=== PATIENT | male | born 1955 | race Caucasian/White ===

== ENCOUNTER 2020-01-30 05:59 | Day surgery (SDC) | payer MEDICARE, OTHER ==
--- NOTE | 2020-01-29 11:09 | PCM.SN.2 ---
- Free Text/Narrative Note: Date: 01/30/2020 Time Out: 631 Start: 631 Stop: 631 Surgical Procedure: Right Reverse Total Shoulder Replacement Diagnosis Right Shoulder Osteoarthritis Current Procedure: Right interscalene block under US guidance for postoperative pain control requested by Dr. La. Patient chart reviewed, risk/benefits discussed with patient, consent obtained. Patient positioned supine, monitors/alarms on, oxygen placed via nasal cannula at 2 LPM. IV sedation administered: Versed 2mg IV, Fentanyl 100 mcg IV given in preop prior to block placement. Right shoulder prepped with two chloropreps. Sterile drapes placed with aseptic technique noted. Under US guidance, right subclavian artery visualized along with the right brachial plexus. Plexus followed up to C6 cricoid level, and area localized with 2mls of 1% lidocaine. 22gauge 2 inch stimiplex needle advanced under US with 0.6mV with stimulation of biceps noted. Good stimulation noted with decreased voltage and absent at 0.3mVs. 1ml of Normal Saline injected with loss of stimulation noted to confirm needle not placed intraneurally. Incremental dosing of 5mls with negative aspiration noted prior to each injection of 0.5% ropivacaine with 1:200,000 epinephrine. Total volume=30mls. Please refer to nurses noted for vital signs. Little Yoo CRNA
--- NOTE | 2020-01-29 13:13 | PCM.PREANE ---
Preanesthetic Assessment - Procedure Proposed Procedure: Reverse Right Total Shoulder Arthroplasty - Anesthesia/Transfusion/Family Hx Anesthesia History: Prior Anesthesia Without Reaction Family History of Anesthesia Reaction: No Transfusion History: No Prior Transfusion(s) Intubation History: Unknown - Review of Systems General: No Symptoms Pulmonary: No Symptoms (Former smoker: 2009 ETOH: couple times/month) Cardiovascular: No Symptoms (History of previous ablation: about 9 years ago) Gastrointestinal: No Symptoms Neurological: No Symptoms (Osteoarthritis) Other: Reports: Sinus Problem (sinusitis/pharyngitis) - Physical Assessment NPO Status Date: 01/29/20 NPO Status Time: 23:00 Vital Signs: HR:88 Sat:96% Temp:97.2 Resp:16 B/P:148/96 Height: 1.85 m Weight: 84 kg ASA Class: 2 Mental Status: Alert & Oriented x3 Airway Class: Mallampati = 2 Dentition: Reports: Normal Dentition, Caries Thyro-Mental Finger Breadths: 3 Mouth Opening Finger Breadths: 3 Lungs: Clear to Auscultation, Normal Respiratory Effort Cardiovascular: Regular Rate, Regular Rhythm, No Murmurs - Lab Values: Laboratory Last Values SARS-CoV-2 (PCR) Not detected (NOT DETECT) 01/27/20 09:00 MRSA (PCR) Negative 01/17/20 10:07 All labs reviewed and noted and within acceptable ranges to proceed with scheduled procedure. - Imaging/EKG Impressions: EKG: SR rate 69 Echocardiogram: EF: 58-63% - Allergies Allergies/Adverse Reactions: Allergies Allergy/AdvReac Type Severity Reaction Status Date / Time amoxicillin [From Augmentin] Allergy kidney Verified 01/29/20 15:29 failure clavulanic acid Allergy kidney Verified 01/29/20 15:29 [From Augmentin] failure - Anesthesia Plan Pre-Op Medication Ordered: None, Other (Oral preoperative meds: lyrica, tylenol, oxycodone all @0619) - Acknowledgements Anesthesia Type Planned: General Anesthesia (Right ISB under US guidance for post operative pain control requested by Dr. La.) Pt an Appropriate Candidate for the Planned Anesthesia: Yes Alternatives and Risks of Anesthesia Discussed w Pt/Guardian: Yes Pt/Guardian Understands and Agrees with Anesthesia Plan: Yes PreAnesthesia Questionnaire - HOME MEDS Home Medications: Home Meds Aspirin [Aspirin EC] 325 mg PO DAILY #40 tablet. 01/29/20 [Rx] Cholecalciferol (Vitamin D3) [Vitamin D3] 5,000 unit PO DAILY 01/29/20 [History] Cyclobenzaprine [Flexeril] 10 mg PO BID PRN #20 tab 01/29/20 [Rx] Fish Oil/[place]-3 Fatty Acids [Fish Oil 1,000 MG] 1 gm PO DAILY 01/29/20 [History] Multivitamin [Daily Lon] 1 tab PO DAILY 01/29/20 [History] oxyCODONE 5 - 10 mg PO Q4H PRN #40 tab 01/29/20 [Rx] - CURRENT (IN HOUSE) MEDS Current Meds: Current Medications Lactated Ringer's (Ringers, Lactated) 1,000 mls @ 125 mls/hr IV ASDIRECTED CLAUDIA Stop: 01/30/20 23:00 Lidocaine/Sodium Bicarbonate (Buffered Lidocaine 1% In Ns 8.4%) 0.25 ml IDERM O NETIME PRN PRN Reason: Prior to IV Start Stop: 01/30/20 18:00 Sodium Chloride (Saline Flush) 10 ml FLUSH ASDIRECTED PRN PRN Reason: Keep Vein Open Stop: 01/30/20 18:00
[~2020-01-30 05:59] MED LIST: Acetaminophen 325 MG Tab PO SCH; Dexamethasone 4 MG/ML 5 ML MDV ONE; EPINEPHrine 1 MG/ML SDV ONE; Ketorolac 30 MG/ML SDV ONE; Lactated Ringers 1,000 ML IV SCH; Lactated Ringers 2,000 ML ONE; Lidocaine 1% 2 ML ONE; Lidocaine 1% 4 ML ONE; Lidocaine 1%/Sod Bicarbonate in NS 8.4% 1 ML Syringe IDERM PRN; Midazolam 1 MG/ML 2 ML SDV ONE; Ondansetron 4 MG/2 ML SDV ONE; Pregabalin 25 MG Cap PO SCH; Propofol 200 MG/20 ML SDV ONE; Rocuronium 50 MG/5 ML Vial ONE; Ropivacaine 0.5% 5 MG/ML 30 ML SDV ONE; Sodium Chloride 0.9% 10 ML Syringe FLUSH PRN; fentaNYL 250 MCG/5 ML SDV ONE; oxyCODONE ER 10 MG TAB.ER PO SCH
[2020-01-30] MEDS ORDERED: diphenhydrAMINE 50 MG/ML SDV IVPUSH PRN (07:41)
[2020-01-30] MEDS ORDERED: Ondansetron 4 MG/2 ML SDV IVPUSH PRN (07:41)
[2020-01-30] MEDS ORDERED: ePHEDrine 50 MG/ML SDV IVPUSH PRN (07:41)
[2020-01-30] MEDS ORDERED: fentaNYL 100 MCG/2 ML SDV IVPUSH PRN (07:41)
[2020-01-30] MEDS ORDERED: HYDROmorphone 0.5 MG/0.5 ML Syringe IVPUSH PRN (07:43)
[2020-01-30] MEDS ORDERED: Albuterol 0.083% 2.5 MG/3 ML Neb Soln NEB PRN (07:43)
[2020-01-30] MEDS: Vancomycin 1 GM SDV ONE ×2 (08:15→08:56)
--- NOTE | 2020-01-30 09:33 | PCM.POSTAN ---
POST ANESTHESIA ASSESSMENT - MENTAL STATUS Mental Status: Alert - VITAL SIGNS Vital Signs: Last Vital Signs Temp 97 01/30/20927 Pulse 82 01/30/20927 Resp 10 01/30/20927 BP 139/90 927 Pulse Ox 95% 01/30/20927 - RESPIRATORY Respiratory Status: Respiratory Rate WNL, Airway Patent, O2 Saturation Stable, Supplemental Oxygen - CARDIOVASCULAR CV Status: Pulse Rate WNL, Blood Pressure Stable - GASTROINTESTINAL GI Status: No Symptoms - POST OP HYDRATION Hydration Status: Adequate & Stable
[2020-01-30] MEDS ORDERED: oxyCODONE 5 MG Tab PO PRN (09:49)
--- NOTE | 2020-01-30 10:46 | PCM48HPAN ---
Post Anesthesia Note - EVALUATION WITHIN 48HRS OF ANESTHETIC Vital Signs in Normal Range: Yes Patient Participated in Evaluation: Yes Respiratory Function Stable: Yes Airway Patent: Yes Cardiovascular Function Stable: Yes Hydration Status Stable: Yes Pain Control Satisfactory: Yes Nausea and Vomiting Control Satisfactory: Yes Mental Status Recovered: Yes Vital Signs: Last Vital Signs Temp 36.4 C 01/30/20 10:30 Pulse 70 01/30/20 10:30 Resp 13 01/30/20 10:30 BP 130/82 01/30/20 10:30 Pulse Ox 95 01/30/20 10:30
--- NOTE | 2020-01-30 14:37 | CR ---
PROCEDURE INFORMATION: Exam: XR Right Shoulder Exam date and time: 01/30/2020 9:28 AM Age: 64 years old Clinical indication: Device placement; Joint replacement hardware; Additional info: Total right shoulder replacement; Post-op films TECHNIQUE: Imaging protocol: XR Right shoulder. Views: 1 view. COMPARISON: CR Shoulder Comp Rt 11/20/2019 4:10 PM FINDINGS: Bones/joints: There is a new shoulder replacement. There is good alignment. Soft tissues: There is soft tissue and joint air. IMPRESSION: Shoulder replacement. Thank you for allowing us to participate in the care of your patient. Dictated and Authenticated by: Gennaro Sánchez MD 01/30/2020 11:03 AM Central Time ([place] & [place]) DARRYL
--- NOTE | 2020-01-30 15:06 | CR ---
PROCEDURE INFORMATION: Exam: FL Fluoroscopy, Up to 1 Hour Physician Time; Radiologist Not Present For Fluoroscopy Exam date and time: 01/30/2020 8:52 AM Age: 64 years old Clinical indication: Device placement; Additional info: Total right shoulder replacement; In-operative films TECHNIQUE: Imaging protocol: Fluoroscopy , up to 1 hour physician or other qualified health customer care representative time. This radiologist did not supervise this procedure. Exam supervised by facility personnel. Report for radiation dosage reporting and documentation only. COMPARISON: No relevant prior studies available. RADIATION DOSE METRICS: Fluoroscopy time (seconds): 1.9 seconds Number of fluoro spot images: 2 FINDINGS: Procedural imaging: Shoulder replacement. Notes: Fluoroscopy supervised by facility personnel. See also separate procedure report. IMPRESSION: Fluoroscopy dosage documentation. See also separate procedure notes. Thank you for allowing us to participate in the care of your patient. Dictated and Authenticated by: Gennaro Sánchez MD 01/30/2020 10:35 AM Central Time ([place] & [place]) DARRYL
--- NOTE | 2020-02-13 12:01 | PCM.OPNOTE ---
- General Post-Op/Procedure Note Date of Surgery/Procedure: 01/30/20 Operative Procedure(s): right reverse total shoulder arthroplasty Pre Op Diagnosis: right shoulder rotator cuff tear arthropathy Post-Op Diagnosis: Same Anesthesia Technique: General ET Tube, Regional Block Primary Surgeon: Akhil La Anesthesia Provider: Little Yoo Assistant Clinical Director: Brit Michelle Assistant Clinical Director: Kenyetta Gorman EBL in mLs: 350 Complications: None Condition: Good Free Text/Narrative:: 16 stem 36+6 4mm poly
--- NOTE | 2020-02-13 12:29 | OR ---
DATE OF OPERATION: 01/30/2020 SURGEON: Akhil La MD OPERATION PERFORMED: Right reverse total shoulder arthroplasty. PREOPERATIVE DIAGNOSIS: Right shoulder rotator cuff tear arthropathy with severe osteoarthrosis. POSTOPERATIVE DIAGNOSIS: Right shoulder rotator cuff tear arthropathy with severe osteoarthrosis. ANESTHESIA: General endotracheal intubation with regional interscalene block. ANESTHESIA PROVIDER: Little Yoo CRNA. ORDER EXPEDITER: Brit Michelle PA-C; and Kenyetta Gorman LPN. ESTIMATED BLOOD LOSS: 350 mL. COMPLICATIONS: None. CONDITION: Stable. IMPLANTS: 1. Kiera size 16 135-degree humeral stem. 2. Kiera size 36 +6 glenosphere. 3. Kiera size 28 mm concentric base plate. 4. Kiera size 4 mm polyethylene insert. DESCRIPTION OF PROCEDURE: The patient was identified in the preoperative holding area, where proper site was marked and identified by surgeon. The patient was taken back to the operative theater, where after adequate anesthesia, the patient's right upper extremity was sterilely prepped and draped in the usual sterile fashion. OR time-out was performed. The patient received 2 g of IV Ancef. At this time, a standard deltopectoral incision was made. Cephalic vein was identified. Deltoid was retracted laterally. Clavipectoral fascia was incised and the conjoined tendon was retracted medially. The anterior humeral circumflex vessels were then ligated. Biceps tendon was identified and a tenodesis of the biceps tendon was done near the pectoralis major tendon. Biceps tendon was then resected and was brought back to the level of the glenoid, where it was resected. The patient then had the subscapularis peeled down. He had severe limitation of motion and with large bony spurs, it did take significant effort to remove all the bony spurs off the humerus to allow it to dislocate. Once it was dislocated, neck cut was completed and found to be adequate. Attention was turned to the glenoid, and again at this point, the patient had a large amount of spurs posteriorly as well as inferiorly to the glenoid as well as behind the humerus that had to be resected out making it significantly more difficult than usual. Once the bony spurs were removed, anterior and posterior retractors of the glenoid were placed. Guide pin was placed in a center-center position with 10 degrees inferior tilt and a 28 mm reamer was then utilized to get good bleeding cancellous bone. The glenoid base plate was then placed, a central compression screw was then placed and found to have adequate compression onto the glenoid. An inferior and superior locking screw were then placed and the 36 +6 glenosphere was impacted into place. Attention was turned to the humerus. Starting with a 12 broach, I was able to broach up to a 16, which was found to be rotationally and vertically stable. Calcar planer was then utilized. Trial +4 insert was placed and the patient's shoulder was relocated and brought through range of motion, and was found to be stable throughout. No signs of impingement. C-arm fluoroscopy was utilized showing all the parts to be in anatomic position. The trial implants were then removed. The size 16 stem was constructed on the back table with 135 degrees +4 poly. This was then impacted en bloc into the humerus, was reduced and C-arm fluoroscopy again showed all parts in good position and sized. 1 L of pulse lavage irrigation with Ancef was irrigated through the shoulder along with IrriSept irrigation. 2-0 Vicryl was used subcutaneously, Prineo was used for closure of the skin. The patient tolerated the procedure well and was sent to PACU in stable condition. JENNY /[id number]
== END 2020-01-30 14:03 | disposition home or self-care (01) ==
LOC: JD.SDS 05:59 → EDSTATUS 07:30 → JD.SDS 14:03
PROVIDERS: ATTEND Orthopaedic Surgery
DX: M19.011 Primary osteoarthritis, right shoulder (principal); M75.101 Unspecified rotator cuff tear or rupture of right shoulder, not specified as traumatic; Z88.8 Allergy status to other drugs, medicaments and biological substances; Z79.899 Other long term (current) drug therapy; Z87.891 Personal history of nicotine dependence; Z88.0 Allergy status to penicillin; Z01.812 Encounter for preprocedural laboratory examination; Z20.828 Contact with and (suspected) exposure to other viral communicable diseases; G89.18 Other acute postprocedural pain
CPT/HCPCS: 23474; 73020; 76000; 87641; 97110; 97161; A9270; C1713; C1769; C1776; J0171; J1100; J1885; J2001; J2250; J2370; J2405; J2704; J2710; J2795; J3010; J3370; J7120; 01638; 64415; U0002

== ENCOUNTER → 2021-03-10 | Day surgery (SDC) | payer MEDICARE, OTHER ==
[~2021-03-10] MED LIST changes: +Bupivacaine 0.5% 30 ML SDV ONE; +Dexmedetomidine 200 MCG/2 ML SDV ONE; -EPINEPHrine 1 MG/ML SDV ONE; -Ketorolac 30 MG/ML SDV ONE; +Lactated Ringers 1,000 ML ONE; -Lactated Ringers 2,000 ML ONE; -Lidocaine 1% 2 ML ONE; -Lidocaine 1% 4 ML ONE; -Ondansetron 4 MG/2 ML SDV ONE; -Rocuronium 50 MG/5 ML Vial ONE; +ceFAZolin 1 GM Vial ONE; +fentaNYL 100 MCG/2 ML SDV ONE; -fentaNYL 250 MCG/5 ML SDV ONE
--- NOTE | 2021-03-10 10:57 | PCM.PREANE ---
Preanesthetic Assessment - Procedure Proposed Procedure: Right Total Knee Arthroplasty - Anesthesia/Transfusion/Family Hx Anesthesia History: Prior Anesthesia Without Reaction Family History of Anesthesia Reaction: No Transfusion History: No Prior Transfusion(s) Intubation History: Unknown - Review of Systems General: No Symptoms Pulmonary: No Symptoms (ETOH: occasional/ Former smoker: less than 1ppd for 20 years.) Cardiovascular: No Symptoms (history of SVT with ablation 8-10 yrs ago.) Gastrointestinal: No Symptoms Neurological: No Symptoms Other: Reports: Liver Problems (history of hepatitis reaction noted with augmentin therapy) - Physical Assessment NPO Status Date: 03/09/21 NPO Status Time: 23:00 Vital Signs: HR: 76 B/P: 127/67 Resp: 16 Sat: 96% Temp: 98.1 Height: 1.85 m Weight: 86 kg ASA Class: 2 Mental Status: Alert & Oriented x3 Airway Class: Mallampati = 2 Dentition: Reports: Normal Dentition, [place](s), Caries Thyro-Mental Finger Breadths: 3 Mouth Opening Finger Breadths: 3 ROM/Head Extension: Full Lungs: Clear to Auscultation, Normal Respiratory Effort Cardiovascular: Regular Rate, Regular Rhythm, No Murmurs - Imaging/EKG Impressions: CXR: nodule in left lung base. EKG: SR rate=77, borderline inferior Q waves, LAD. - Allergies Allergies/Adverse Reactions: Allergies Allergy/AdvReac Type Severity Reaction Status Date / Time amoxicillin [From Augmentin] Allergy kidney Verified 01/29/20 15:29 failure clavulanic acid Allergy kidney Verified 01/29/20 15:29 [From Augmentin] failure - Anesthesia Plan Pre-Op Medication Ordered: Other (Preopertive oral pain meds given @ 0916 (lyrica, tylenol, oxycontin)) - Acknowledgements Anesthesia Type Planned: Spinal (Right Adductor Canal Block under US guidance for post operative pain control requested by Dr. La.) Pt an Appropriate Candidate for the Planned Anesthesia: Yes Alternatives and Risks of Anesthesia Discussed w Pt/Guardian: Yes Pt/Guardian Understands and Agrees with Anesthesia Plan: Yes PreAnesthesia Questionnaire HEENT History: Reports: Sinusitis, Other (See Below) Other HEENT History: pharyngitis, wears glasses Cardiovascular History: Reports: Other (See Below) Other Cardiovascular History: SVT with ablation Respiratory History: Reports: None Gastrointestinal History: Reports: Colon Polyp Genitourinary History: Reports: None DIRECTOR OF CATERING History: Reports: None Musculoskeletal History: Reports: Osteoarthritis, Other (See Below) Other Musculoskeletal History: right shoulder pain, right knee degnerative joint disease Neurological History: Reports: None Psychiatric History: Reports: None Endocrine/Metabolic History: Reports: None Hematologic History: Reports: None Immunologic History: Reports: None Oncologic (Cancer) History: Reports: None Dermatologic History: Reports: None - Infectious Disease History Infectious Disease History: Reports: None - Past Surgical History Head Surgeries/Procedures: Reports: None HEENT Surgical History: Reports: Tonsillectomy Cardiovascular Surgical History: Reports: Cardiac Ablation Respiratory Surgical History: Reports: None GI Surgical History: Reports: Colonoscopy Female Surgical History: Reports: None Male Surgical History: Reports: None Endocrine Surgical History: Reports: None Neurological Surgical History: Reports: None Musculoskeletal Surgical History: Reports: Arthroscopic Knee Oncologic Surgical History: Reports: None Dermatological Surgical History: Reports: None - SUBSTANCE USE Tobacco Use Status *Q: Former Tobacco User Recreational Drug Use History: No - HOME MEDS Home Medications: Home Meds Cholecalciferol (Vitamin D3) [Vitamin D3] 5,000 unit PO DAILY 01/29/20 [History] Fish Oil/[place]-3 Fatty Acids [Fish Oil 1,000 MG] 1 gm PO DAILY 01/29/20 [History] Multivitamin [Daily Lon] 1 tab PO DAILY 01/29/20 [History] Aspirin [Aspirin EC] 325 mg PO BID #84 tab 03/09/21 [Rx] Cyclobenzaprine [Flexeril] 10 mg PO BID PRN #20 tab 03/09/21 [Rx] oxyCODONE 5 - 10 mg PO Q4H PRN #40 tab 03/09/21 [Rx] - CURRENT (IN HOUSE) MEDS Current Meds: Current Medications Acetaminophen (Acetaminophen 325 Mg Tab) 975 mg PO ONETIME CLAUDIA Stop: 03/10/21 14:00 Last Admin: 03/10/21 09:16 Dose: 975 mg Documented by: Morphine Sulfate 8 mg/Epinephrine HCl 0.3 mg/Cefuroxime Sodium 750 mg/Ketorolac Tromethamine 30 mg/Sodium Chloride 7.9 ml 0 mg .XX ASDIRECTED PRN PRN Reason: Pain Lactated Ringer's (Ringers, Lactated) 1,000 mls @ 125 mls/hr IV ASDIRECTED CLAUDIA Stop: 03/10/21 23:00 Lidocaine/Sodium Bicarbonate (Lidocaine 1%/Sod Bicarbonate In Ns 8.4% 1 Ml Syringe) 0.25 ml IDERM ONETIME PRN PRN Reason: Prior to IV Start Stop: 03/10/21 23:00 Oxycodone HCl (Oxycodone Er 10 Mg Tab.Er) 10 mg PO ONETIME CLAUDIA Stop: 03/10/21 14:00 Last Admin: 03/10/21 09:16 Dose: 10 mg Documented by: Pregabalin (Pregabalin 25 Mg Cap) 50 mg PO ONETIME CLAUDIA Stop: 03/10/21 14:00 Last Admin: 03/10/21 09:16 Dose: 50 mg Documented by: Sodium Chloride (Sodium Chloride 0.9% 10 Ml Syringe) 10 ml FLUSH ASDIRECTED PRN PRN Reason: Keep Vein Open Stop: 03/10/21 23:00 Discontinued Medications Bupivacaine HCl (Bupivacaine 0.5% 30 Ml Sdv) Confirm Administered Dose 30 ml .ROUTE .STK-MED ONE Stop: 03/10/21 09:50 Dexamethasone (Dexamethasone 4 Mg/Ml 5 Ml Mdv) Confirm Administered Dose 20 mg .ROUTE .STK-MED ONE Stop: 03/10/21 09:14 Dexmedetomidine HCl (Dexmedetomidine 200 Mcg/2 Ml Sdv) Confirm Administered Dose 200 mcg .ROUTE .STK-MED ONE Stop: 03/10/21 09:14 Ropivacaine (Ropivacaine 0.5% 5 Mg/Ml 30 Ml Sdv) Confirm Administered Dose 30 ml .ROUTE .STK-MED ONE Stop: 03/10/21 09:52 Tranexamic Acid (Tranexamic Acid 1,000 Mg/10 Ml Amp) Confirm Administered Dose 1,000 mg .ROUTE .STK-MED ONE Stop: 03/10/21 09:41 Vancomycin HCl (Vancomycin 1 Gm Sdv) Confirm Administered Dose 1 gm .ROUTE .STK- MED ONE Stop: 03/10/21 09:41
[2021-03-10] MEDS: Vancomycin 1 GM SDV ONE ×3 (12:39→13:05)
[2021-03-10] MEDS: Morphine 8 MG, EPINEPHrine 0.3 MG, Cefuroxime 750 MG, Ketorolac 30 MG, Sodium Chloride ... PRN ×10 (12:40→12:58)
--- NOTE | 2021-03-10 13:57 | PCM.POSTAN ---
POST ANESTHESIA ASSESSMENT - MENTAL STATUS Mental Status: Alert, Oriented - VITAL SIGNS Vital Signs: Last Vital Signs Temp 98.7 F 03/10/21 13:45 Pulse 72 03/10/21 13:45 Resp 73 H 03/10/21 13:54 BP 133/77 03/10/21 13:45 Pulse Ox 94 L 03/10/21 13:54 - RESPIRATORY Respiratory Status: Respiratory Rate WNL, Airway Patent, O2 Saturation Stable - CARDIOVASCULAR CV Status: Pulse Rate WNL, Blood Pressure Stable - GASTROINTESTINAL GI Status: No Symptoms - PAIN Pain Score: 0 (post-SAB) - POST OP HYDRATION Hydration Status: Adequate & Stable
--- NOTE | 2021-03-10 14:01 | PCM.PRNOTE ---
- Free Text/Narrative Note: Postoperative regional pain control requested by surgeon. Pre-op Dx: Rt knee osteoarthritis Post-op Rx: Rt total knee arthroplasty. Procedure: Rt Adductor canal block with U/S guidance Requesting physician: Dr. Akhil Raines Risks and benefits discussed with the patient preoperatively including infection, bleeding, incomplete or failed block, possible nerve damage, local anesthetic toxicity. Chart reviewed, VS stable. Permit signed. Patient in PACU , stable , alert and awake after SAB. Time out performed at 13:42. Right mid-thigh was prepped with Chloraprep x 1 and allowed to dry. Under aseptic technique, the Right femoral artery and sartorius muscle were identified under ultrasound prior to needle insertion . 4" Stimuplex needle #22 G was inserted under US guidance. Under direct visualization of needle tip the injection of 0.5% Ropivacaine with 1:200k epinephrine,(mixed with 40 mcg Dexmedetomidine and 6 mg of Dexamethasone), total of 30 mls in divided doses, maintaining negative aspiration was completed around the femoral artery under the sartorius muscle without problems. No local anesthetic toxicity was noted. Patient is awake, stable and tolerated the procedure well. Times: 13:42 - 13:46
--- NOTE | 2021-03-10 14:29 | CR ---
Right knee: AP and crosstable lateral views of the right knee were obtained. Comparison: Prior CT right knee study of 02/16/21. Knee prosthesis and patellar prosthesis are noted. Components are aligned. Soft tissue air is noted. Underlying bony structures are intact. Impression: 1. Satisfactory postoperative radiographic appearance of recently placed right knee prostheses. Diagnostic code #2
--- NOTE | 2021-03-10 14:31 | PCM48HPAN ---
Post Anesthesia Note - EVALUATION WITHIN 48HRS OF ANESTHETIC Vital Signs in Normal Range: Yes Patient Participated in Evaluation: Yes Respiratory Function Stable: Yes Airway Patent: Yes Cardiovascular Function Stable: Yes Hydration Status Stable: Yes Pain Control Satisfactory: Yes Nausea and Vomiting Control Satisfactory: Yes Mental Status Recovered: Yes Vital Signs: Last Vital Signs Temp 98.2 F 03/10/21 14:15 Pulse 71 03/10/21 14:15 Resp 18 03/10/21 14:15 BP 135/80 03/10/21 14:15 Pulse Ox 97 03/10/21 14:15
--- NOTE | 2021-03-17 17:05 | PCM.OPNOTE ---
- General Post-Op/Procedure Note Date of Surgery/Procedure: 03/10/21 Operative Procedure(s): right total knee arthroplasty with [employer] Pre Op Diagnosis: right knee osteoarthrosis Post-Op Diagnosis: Same Anesthesia Technique: Local, MAC, Spinal Primary Surgeon: Akhil La Anesthesia Provider: Donny Mccoy Underground Drill Operator: Brit Michelle Underground Drill Operator: Kenyetta Gorman EBL in mLs: 150 Complications: None Condition: Good Free Text/Narrative:: 09/06 9mm 35x10
--- NOTE | 2021-03-18 13:20 | OR ---
DATE OF OPERATION: 03/10/2021 SURGEON: Akhil La MD OPERATION PERFORMED: Right total knee arthroplasty with [employer] robot[employer]. PREOPERATIVE DIAGNOSIS: Right knee osteoarthrosis. POSTOPERATIVE DIAGNOSIS: Right knee osteoarthrosis. ANESTHESIA: Local MAC with spinal. ANESTHESIA PROVIDER: Rosa Isela Vidal. ASSISTANTS: Brit Michelle PA-C and Kenyetta Gorman LPN. ESTIMATED BLOOD LOSS: 150 mL. COMPLICATIONS: None. CONDITION: Stable. IMPLANTS: 1. [employer] size 6 press-fit CR femur. 2. [employer] size 6 press-fit tibial baseplate. 3. Kiera size 6, 9 mm CS polyethylene insert. 4. Kiera size 35 x 10 mm press-fit patella. DESCRIPTION OF PROCEDURE: The patient was identified in the preop holding area. Proper site was marked and identified by the surgeon. The patient was taken back to the operating theater, where after adequate anesthesia, the patient's right lower extremity had a nonsterile tourniquet applied and then it was sterilely prepped and draped in the usual sterile fashion. OR time-out was performed. The patient received 2 g IV Ancef. Leg ulrich was then applied to the right lower extremity. At this time, the right lower extremity was exsanguinated. Tourniquet was insufflated to 250 mmHg. Standard anterior incision was made. Medial parapatellar arthrotomy was created. Deep fibers of the MCL were raised and anterior fat pad was resected. Attention was turned to the patella. Patella measured 26, it was resected to a 15 for a 35 x 10 mm patella. Drill holes were then drilled. Attention was then turned to the femur. Two 4.0 Schanz pins were placed intra-incisionally on the femur for the [employer] robotic array and then 2 more were placed on the tibia 3 fingerbreadths below the tibial tubercle. The [employer] robotic arrays were placed on both the femur and the tibia at this time as well as checkpoints on the femur and tibia. Hip center rotation was then obtained. The medial and lateral malleoli were marked as well as the checkpoints were marked for the [employer] robotic plan. The patient's knee was brought to full extension, varus and valgus stresses were applied, and then into 90 degrees of flexion. [employer] robotic plan for this patient was then undertaken to match the flexion and extension gaps. A straight saw blade was then brought in. Tibial cut was completed as well as an anterior femoral cut, anterior chamfer cut, and posterior femoral cut. Saw blade was then switched out and the distal femoral cut as well as the posterior chamfer cut was completed. All bony fragments were removed. At this time, medial and lateral menisci were resected as well as any posterior osteophytes. Attention was turned to the tibia. The size 6 trial baseplate was placed on the tibia and a size 6 trial femur was placed on the femur. A size 6, 9 mm trial poly was placed. The patient's knee was brought to full extension and flexion. Varus and valgus stresses were applied, was found to be stable with no instability. No signs of liftoff or loosening on the tibial baseplate. At this time, femoral drill holes were drilled, and the tibia was stamped and drilled in proper rotation. All trial implants were then removed. The size 6 tibial baseplate was impacted into place, size 6 femoral component was impacted into place, and then a size 6, 9 mm CS polyethylene insert was impacted into place. A 35 x 10 mm press-fit patella was then press-fit into place. The tourniquet was deflated. Bleeders were cauterized. 1 L pulse lavage irrigation with Ancef was irrigated through the knee along with 400 mL IrriSept irrigation. Periarticular injection was completed. Topical tranexamic acid and vancomycin powder were applied. All checkpoints and pins were removed. At this point, a #2 barbed suture was used for closure of the medial parapatellar arthrotomy in flexion. 2- 0 Vicryl and Stratafix were used for subcutaneous closure. Prineo was used for cutaneous closure. 3-0 nylons were used for closure of the pin holes on the tibia. The patient had a sterile soft dressing applied. The patient had an HUGO wrap applied and was sent to PACU in stable condition. The patient tolerated the procedure well. MMODAL /[id number]
== END | disposition home or self-care (01) ==
LOC: JD.SDS 08:54
PROVIDERS: ATTEND Orthopaedic Surgery
DX: M17.11 Unilateral primary osteoarthritis, right knee (principal); G89.29 Other chronic pain; Z98.890 Other specified postprocedural states; Z87.891 Personal history of nicotine dependence; Z88.0 Allergy status to penicillin; Z79.899 Other long term (current) drug therapy; Z88.8 Allergy status to other drugs, medicaments and biological substances
CPT/HCPCS: 01402; 73560-26-RT; 73560-RT; 97110-GP; 97116-GP; 97161-GP; A9270-GY; C1713; C1776; J0171; J0690; J0697; J1100; J1885; J2250; J2270; J2704; J2795; J3010; J3370; J3490; J7120

== ENCOUNTER 2025-02-10 06:00 | Day surgery (SDC) | payer MEDICARE ==
[~2025-02-10 06:00] MED LIST changes: -Acetaminophen 325 MG Tab PO SCH; -Bupivacaine 0.5% 30 ML SDV ONE; -Dexamethasone 4 MG/ML 5 ML MDV ONE; -Dexmedetomidine 200 MCG/2 ML SDV ONE; -Lactated Ringers 1,000 ML IV SCH; -Lactated Ringers 1,000 ML ONE; -Lidocaine 1%/Sod Bicarbonate in NS 8.4% 1 ML Syringe IDERM PRN; -Midazolam 1 MG/ML 2 ML SDV ONE; -Pregabalin 25 MG Cap PO SCH; -Propofol 200 MG/20 ML SDV ONE; -Ropivacaine 0.5% 5 MG/ML 30 ML SDV ONE; +Sodium Chloride 0.9% 10 ML Syringe FLUSH SCH; -ceFAZolin 1 GM Vial ONE; -fentaNYL 100 MCG/2 ML SDV ONE; -oxyCODONE ER 10 MG TAB.ER PO SCH
[2025-02-10] MEDS ORDERED: propofoL 500 MG/50 ML 50 ML ONE (06:18)
[2025-02-10] MEDS ORDERED: dexmedeTOMIDine HCl 200 MCG/2 ML SDV ONE (06:20)
[2025-02-10] MEDS ORDERED: EPINEPHrine 1 MG/ML SDV ONE (06:20)
[2025-02-10] MEDS ORDERED: Ropivacaine 0.5% 5 MG/ML 30 ML SDV ONE (06:20)
[2025-02-10] MEDS ORDERED: Ondansetron 4 MG/2 ML SDV ONE (06:21)
[2025-02-10] MEDS ORDERED: Dexamethasone 4 MG/ML 5 ML MDV ONE (06:21)
[2025-02-10] MEDS: Lactated Ringers 1,000 ML IV SCH (06:30)
[2025-02-10] MEDS: oxyCODONE ER 10 MG TAB.ER PO ONE (06:39)
[2025-02-10] MEDS ORDERED: Propofol 200 MG/20 ML SDV ONE (07:43)
[2025-02-10] MEDS ORDERED: Lactated Ringers 1,000 ML ONE (07:52)
[2025-02-10] MEDS: Morphine 8 MG, EPINEPHrine 0.3 MG, Cefuroxime 750 MG, Ketorolac 30 MG, Sodium Chloride ... PRN (07:59)
[2025-02-10] MEDS ORDERED: Ondansetron 4 MG/2 ML SDV IVPUSH PRN (08:40)
[2025-02-10] MEDS ORDERED: fentaNYL 100 MCG/2 ML SDV IVPUSH PRN (08:40)
== END 2025-02-10 14:46 | disposition home or self-care (01) ==
LOC: JD.SDS 06:00
PROVIDERS: ATTEND Orthopaedic Surgery
DX: M17.12 Unilateral primary osteoarthritis, left knee (principal); E78.5 Hyperlipidemia, unspecified; I10 Essential (primary) hypertension; Z88.8 Allergy status to other drugs, medicaments and biological substances; Z79.899 Other long term (current) drug therapy
CPT/HCPCS: 0055T; 27447; 64447; 73560; 97116; 97161; A9270; C1713; C1776; J0169; J0690; J0697; J1100; J1885; J2272; J2405; J2704; J2795; J3373; J7120